=== PATIENT | female | born 1995 | race Hispanic/Latino ===

== ENCOUNTER 2018-09-19 10:26 | Emergency (ER) | payer SELFPAY ==
[2018-09-19 13:07] LABS: Absolute Lymphocytes (CBC) 1.7 K/uL (0.7-4.9); Absolute Monocytes 0.7 K/uL (0.1-1.3); Basophils % 0.6 % (0-1.3); Eosinophils % 1.5 % (0-4.4); Hematocrit 32.8 % (36.0-45.0); Lymphocytes % 22.7 % (15.3-44.8); MPV 9.2 fL (7.6-11.3); Monocytes % 9.4 % (3.3-12.3); RBC Red Blood Cell Count 4.18 M/uL (3.86-4.86)
[2018-09-19 13:19] LABS: BUN Blood Urea Nitrogen 9 mg/dL (7-18); Bicarbonate 26 mmol/L (21-32); Glucose Level 80 mg/dL (74-106); Potassium 3.6 mmol/L (3.5-5.1); Sodium Level 141 mmol/L (136-145)
[2018-09-19 13:34] LABS: Urine Blood NEGATIVE (NEG); Urine Glucose NEGATIVE (NEG); Urine Protein NEGATIVE (NEG); Urine pH 5.5 (5.0-7.0)
--- NOTE | 2018-09-19 13:59 | ER ---
Nurse's Notes [facility] Name: Qian Snyder Age: 22 yrs Sex: Female : 1995 Arrival Date: 09/19/2018 Time: 10:29 Bed 10 Private MD: Diagnosis: Dysmenorrhea, unspecified Presentation: 09/19 10:51 Presenting complaint: Patient states: from this morning i am having really bad lower tw2 abdominal pain, today is my period but it has been getting worse each time and this pain is different this time and i feel dizzy and have nausea. Transition of care: patient was not received from another setting of care. Onset of symptoms was September 19, 2018. Risk Assessment: Do you want to hurt yourself or someone else? Patient reports no desire to harm self or others. Initial Sepsis Screen: Does the patient meet any 2 criteria? No. Patient's initial sepsis screen is negative. Does the patient have a suspected source of infection? No. Patient's initial sepsis screen is negative. Care prior to arrival: None. 10:51 Method Of Arrival: Ambulatory tw2 10:51 Acuity: AG 3 tw2 Triage Assessment: 10:53 General: Appears in no apparent distress. slender, Behavior is calm, cooperative, tw2 appropriate for age. Pain: Complains of pain in right lower quadrant and left lower quadrant. 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 - Social history:: Smoking status: . - Ebola Screening: : Patient denies travel to an Ebola-affected area in the 21 days before illness onset. Screenin:53 Abuse screen: Denies threats or abuse. Denies injuries from another. Nutritional iw screening: No deficits noted. Tuberculosis screening: No symptoms or risk factors identified. Fall Risk None identified. Assessment: 12:30 General: Appears in no apparent distress. comfortable, Behavior is calm, cooperative. iw Pain: Complains of pain in left lower quadrant and right lower quadrant. Neuro: Level of Consciousness is awake, alert, obeys commands, Oriented to person, place, time, situation, Moves all extremities. Full function. Cardiovascular: Patient's skin is warm and dry. Respiratory: Respiratory effort is even, unlabored, Respiratory pattern is regular, symmetrical. GI: Abdomen is flat, Reports lower abdominal pain, nausea. Derm: Skin is intact, is healthy with good turgor. Musculoskeletal: Range of motion: intact in all extremities. Vital Signs: 10:52 BP 122 / 74; Pulse 78; Resp 18; Temp 99.1(O); Pulse Ox 100% on R/A; Weight 47.63 kg tw2 (R); Height 5 ft. 2 in. (157.48 cm); Pain 7/10; 10:52 Body Mass Index 19.20 (47.63 kg, 157.48 cm) tw2 ED Course: 10:29 Patient arrived in ED. rg4 10:52 Triage completed. tw2 10:53 Arm band placed on. tw2 11:43 Vane Beauchamp RN is Primary Nurse. iw 11:50 Dieudonne Lin NP is PHCP. pm1 11:50 James Vann MD is Attending Physician. pm1 12:30 Patient has correct armband on for positive identification. iw 12:53 Initial lab(s) drawn, by me, sent to lab. Inserted saline lock: 20 gauge in right iw antecubital area, using aseptic technique. Blood collected. 14:35 No provider procedures requiring assistance completed. Patient did not have IV access iw during this emergency room visit. Administered Medications: No medications were administered Outcome: 13:58 Discharge ordered by MD. pm1 14:35 Discharged to home ambulatory, with family. iw 14:35 Condition: good 14:35 Discharge instructions given to patient, family, Instructed on discharge instructions, follow up and referral plans. medication usage, Demonstrated understanding of instructions, follow-up care, medications, Prescriptions given X 2. 14:36 Patient left the ED. iw Signatures: Vane Beauchamp RN RN iw Dieudonne Lin NP INVENTORY TECHNICIAN pm1 Nena Kingston RN RN tw2 Gricelda Perry rg4 Corrections: (The following items were deleted from the chart) 10:54 10:51 Presenting complaint: Patient states: from this morning i am having really bad tw2 lower abdominal pain, today is my period but it has been getting worse each time and this pain is different this time tw2
--- NOTE | 2018-09-19 13:59 | EDPHYS ---
Physician Documentation [facility] Name: Qian Snyder Age: 22 yrs Sex: Female : 1995 Arrival Date: 09/19/2018 Time: 10:29 Bed 10 Private MD: ED Physician James Vann HPI: 09/19 12:36 This 22 yrs old Female presents to ER via Ambulatory with complaints of Low pm1 Abdominal Pain. 12:36 The patient presents with abdominal pain in the lower abdomen. Onset: The pm1 symptoms/episode began/occurred 4 month(s) ago. The symptoms do not radiate. Associated signs and symptoms: Pertinent negatives: nausea, vomiting, and diarrhea, dysuria, fever. The symptoms are described as crampy. Modifying factors: the symptoms are aggravated by onset of menses. Severity of pain: in the emergency department the pain has resolved is a 0 / 10. The patient has experienced similar episodes in the past, a few times, and the symptoms today are exactly the same, with prior menses. The patient has not recently seen a physician. Patient with lower abdominal cramping with the onset of menses for the past four months. Patient is currently pain free and started her cycle today. she has noticed that her cycles have been heavier for the past four months. No dysuria. Patient used to take control and iron pills for her dysmenorrhea but stopped when her symptoms appeared to resolve and she believed that it was preventing her from gaining weight. 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 - Social history:: Smoking status: . - Ebola Screening: : Patient denies travel to an Ebola-affected area in the 21 days before illness onset. ROS: 12:36 Constitutional: Negative for fever, chills, and weight loss, Eyes: Negative for injury, pm1 pain, redness, and discharge, ENT: Negative for injury, pain, and discharge, Neck: Negative for injury, pain, and swelling, Cardiovascular: Negative for chest pain, palpitations, and edema, Respiratory: Negative for shortness of breath, cough, wheezing, and pleuritic chest pain. 12:36 Back: Negative for injury and pain. 12:36 MS/Extremity: Negative for injury and deformity, Skin: Negative for injury, rash, and discoloration, Neuro: Negative for headache, weakness, numbness, tingling, and seizure. 12:36 Abdomen/GI: Positive for abdominal cramps, Negative for nausea, vomiting, and diarrhea, constipation. 12:36 : Positive for menstrual abnormality, Negative for urinary symptoms. Exam: 12:36 Constitutional: This is a well developed, well nourished patient who is awake, alert, pm1 and in no acute distress. Head/Face: Normocephalic, atraumatic. Eyes: Pupils equal round and reactive to light, extra-ocular motions intact. Lids and lashes normal. Conjunctiva and sclera are non-icteric and not injected. Cornea within normal limits. Periorbital areas with no swelling, redness, or edema. ENT: Nares patent. No nasal discharge, no septal abnormalities noted. Tympanic membranes are normal and external auditory canals are clear. Oropharynx with no redness, swelling, or masses, exudates, or evidence of obstruction, uvula midline. Mucous membranes moist. Neck: Trachea midline, no thyromegaly or masses palpated, and no cervical lymphadenopathy. Supple, full range of motion without nuchal rigidity, or vertebral point tenderness. No Meningismus. Chest/axilla: Normal chest wall appearance and motion. Nontender with no deformity. No lesions are appreciated. Cardiovascular: Regular rate and rhythm with a normal S1 and S2. No gallops, murmurs, or rubs. Normal PMI, no JVD. No pulse deficits. Respiratory: Lungs have equal breath sounds bilaterally, clear to auscultation and percussion. No rales, rhonchi or wheezes noted. No increased work of breathing, no retractions or nasal flaring. Abdomen/GI: Soft, non-tender, with normal bowel sounds. No distension or tympany. No guarding or rebound. No evidence of tenderness throughout. Back: No spinal tenderness. No costovertebral tenderness. Full range of motion. Skin: Warm, dry with normal turgor. Normal color with no rashes, no lesions, and no evidence of cellulitis. MS/ Extremity: Pulses equal, no cyanosis. Neurovascular intact. Full, normal range of motion. 12:36 Neuro: Orientation: is normal, Motor: is normal, moves all fours, Gait: is steady, at a normal pace, without difficulty. Vital Signs: 10:52 BP 122 / 74; Pulse 78; Resp 18; Temp 99.1(O); Pulse Ox 100% on R/A; Weight 47.63 kg tw2 (R); Height 5 ft. 2 in. (157.48 cm); Pain 7/10; 10:52 Body Mass Index 19.20 (47.63 kg, 157.48 cm) tw2 MDM: 11:52 Patient medically screened. pm1 13:52 Data reviewed: vital signs. Data interpreted: Pulse oximetry: on room air is 100 %. pm1 Interpretation: normal. Counseling: I had a detailed discussion with the patient and/or guardian regarding: the historical points, exam findings, and any diagnostic results supporting the discharge/admit diagnosis, lab results, the need for outpatient follow up, to return to the emergency department if symptoms worsen or persist or if there are any questions or concerns that arise at home. 09/19 12:15 Order name: Urine Dipstick--Ancillary (enter results); Complete Time: 13:52 eb 09/19 12:15 Order name: Urine --Ancillary (enter results); Complete Time: 13:52 eb 09/19 12:36 Order name: Basic Metabolic Panel; Complete Time: 13:52 pm1 09/19 12:36 Order name: CBC with Diff; Complete Time: 13:52 pm1 09/19 12:36 Order name: IV Saline Lock; Complete Time: 12:53 pm1 09/19 12:36 Order name: Labs collected and sent; Complete Time: 12:53 pm1 Administered Medications: No medications were administered Disposition: 09/19/18 13:58 Discharged to Home. Impression: Dysmenorrhea, unspecified. - Condition is Stable. - Discharge Instructions: Dysmenorrhea. - Prescriptions for Diclofenac Sodium 75 mg Oral Tablet, Delayed Release (E.C.) - take 1 tablet by ORAL route 2 times per day As needed; 30 tablet. - Medication Reconciliation Form, Thank You Letter form. - Follow up: Emergency Department; When: As needed; Reason: Worsening of condition. Follow up: Private Physician; When: 2 - 3 days; Reason: Recheck today's complaints, Continuance of care, Re-evaluation by your physician. - Problem is new. - Symptoms have improved. Addendum: 09/26/2018 08:58 Co-signature as Attending Physician, James Vann MD I agree with the assessment and k dr plan of care. Signatures: Dispatcher [employer] EDUT James Vann MD MD [facility] Vane Beauchamp RN RN iw Dieudonne Lin TACTICAL DEBRIEFER OFFICER TACTICAL DEBRIEFER OFFICER pm1 Nena Kingston RN RN tw2 Corrections: (The following items were deleted from the chart) 09/19 14:36 13:58 09/19/2018 13:58 Discharged to Home. Impression: Dysmenorrhea, unspecified. iw Condition is Stable. Forms are Medication Reconciliation Form, Thank You Letter, Antibiotic Education, Prescription Opioid Use. Follow up: Emergency Department; When: As needed; Reason: Worsening of condition. Follow up: Private Physician; When: 2 - 3 days; Reason: Recheck today's complaints, Continuance of care, Re-evaluation by your physician. Problem is new. Symptoms have improved. pm1
== END 2018-09-19 14:36 | disposition home or self-care (01) ==
LOC: ER 10:26
DX: N94.6 Dysmenorrhea, unspecified (principal)
CPT/HCPCS: 36415; 80048; 81003; 81025; 85025; 99283